=== PATIENT | female | born 2000 | race Caucasian/White ===

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

== ENCOUNTER → 2020-01-03 14:43 | Outpatient (CLI) | payer OTHER, SELFPAY ==
--- NOTE | 2020-01-03 14:46 | DI.US.S_ITS ---
PROCEDURE: US PELVIC COMPLETE INDICATIONS: PELVIC PAIN TECHNIQUE: Real-time scanning was performed of the pelvic organs, with image documentation. Additional endovaginal scanning was necessary due to incomplete visualization of the adnexal and endometrial structures by transabdominal scanning. COMPARISON: [facility], PELVIC COMPLETE, 01/04/2019, 14:11. [facility], PELVIC COMPLETE, 12/02/2018, 12:40. FINDINGS: Transabdominal scanning: Limited scanning through the kidneys shows no hydronephrosis. No pathologic free abdominal or pelvic fluid. Endovaginal scanning: Uterus: Uterus is normal in size at the 2.8 x 3.9 x 6.6 cm. The endometrium measures 5.0 mm in combined thickness. Ovaries: The right ovary measures 3.7 x 1.8 x 2.8 cm and the left measures 4.3 x 1.8 x 2.7 cm. A dominant ovarian cyst is not identified, the prior presumed hemorrhagic cyst on the right seen in December of last year has resolved. IMPRESSION: Resolution of a previously present presumed hemorrhagic ovarian cyst from the right ovary, IUD centrally positioned within the endometrial space, no uterine or ovarian pathology is currently suspected. Dictated by: Austin Clark M.D. on 01/03/2020 at 16:28 Approved by: Austin Clark M.D. on 01/03/2020 at 16:32
== END ==
PROVIDERS: PCP Family Medicine; Referring Provider Family Medicine; Visit Provider Family Medicine
DX: R10.2 Pelvic and perineal pain (principal); Z97.5 Presence of (intrauterine) contraceptive device
CPT/HCPCS: 76830; 76856

== ENCOUNTER → 2020-04-16 16:21 | Outpatient (CLI) | payer OTHER, SELFPAY ==
--- NOTE | 2020-04-16 16:25 | DI.RAD.S_ITS ---
PROCEDURE: XR HAND LT MIN 3V INDICATIONS: left hand pain TECHNIQUE: 3 views of the hand(s) acquired. COMPARISON: None. FINDINGS: Bones: No fractures or dislocations. Carpal bones are normally aligned. No suspicious bony lesions. Soft tissues: No suspicious soft tissue calcifications. IMPRESSION: No significant plain film abnormality is detected. Dictated by: Matias Lpoez M.D. on 04/16/2020 at 15:37 Approved by: Matias Lopez M.D. on 04/16/2020 at 15:38
== END ==
PROVIDERS: PCP Family Medicine; Referring Provider Nurse Practitioner; Visit Provider Nurse Practitioner
DX: M79.642 Pain in left hand (principal)
CPT/HCPCS: 73130

== ENCOUNTER 2020-11-14 17:58 | Emergency (ER) | payer OTHER, SELFPAY ==
[2020-11-14 18:03] VITALS: BP 123/57; PULSE 61; RESP 18; TEMP 37; O2SAT 98
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
== END 2020-11-14 19:53 | disposition home or self-care (01) ==
PROVIDERS: Emergency Provider Emergency Medicine; PCP Family Medicine
DX: R68.84 Jaw pain (principal); Y04.2XXA Assault by strike against or bumped into by another person, initial encounter; Y99.0 Civilian activity done for income or pay
CPT/HCPCS: 70486; 99283; 99284